=== PATIENT | male | born 1930 | race Caucasian/White ===

== ENCOUNTER 2017-03-09 00:24 | Inpatient (IN) | payer OTHER ==
[~2017-03-09] VITALS: Ht 182.9 cm; Wt 85.7 kg
--- NOTE | 2017-03-09 01:46 | ED ORDER SUMMARY ---
..... Patient: WILFREDO RAMIREZ OrderSheet [facility] VisitID: [id number] [place] [address] 86y, M Registration Date/Time: 03/09/2017 ORDER SHEET Weight: 85.7 kg (measured) Allergies: Iodine, Shellfish-derived Products GENERAL ORDERS: Chest 1V Urgent (00:03/09/2017 Colleen SYED) (Ack 0:35 LMuller) (5:54 JRomanelli R.N.) Envelope Press Operator (Continuous) (:03/09/2017 Colleen SYED) (Ack 0:35 LMuller) (0:53 DDavis R.N.) Cardiac Panel Stat (03/09/2017 Colleen SYED) (Ack 0:35 LMuller) (0:53 DDavis R.N.) PT with INR Urgent (:03/09/2017 Colleen SYED) (Ack 0:35 LMuller) (0:53 DDavis R.N.) UA-Culture if indicated Urgent (:03/09/2017 Colleen SYED) (Ack 0:35 LMuller) (Cancelled: Unable to Collect5:55 JRomanelli R.N.) Type & Screen Urgent (:03/09/2017 Colleen SYED) (Ack 0:35 LMuller) (0:53 DDavis R.N.) Oxygen (2 L/min) (NC) (:03/09/2017 Colleen SYED) (Ack 0:35 LMuller) (0:53 DDavis R.N.) Pulse oximeter (:03/09/2017 Colleen SYED) (Ack 0:35 LMuller) (0:53 DDavis R.N.) EKG - ER Stat (:03/09/2017 Colleen SYED) (Ack 0:35 LMuller) (0:36 LMuller) CT Abd/Pel w Cont (No) (N/A) Urgent (00:03/09/2017 Colleen SYED) (Ack 0:45 LMuller) (Cancelled: Verbal per Physician1:11 LMuller) Type & Cross (triple a) (triple a ) Urgent (01:02 03/09/2017 LMuller verbal order read back to Colleen SYED) (Ack 1:06 LMuller) (1:59 JRomanelli R.N.) CT Abd/Pel wo Cont Urgent (01:06 03/09/2017 LMuller verbal order read back to Colleen SYED) (1:10 LMuller) MEDICATION ORDERS: Phenergan IV 12.5 mg (HIGH ALERT MEDICATION, NOW) (01:57 03/09/2017 Catalino R.N. verbal order read back to Colleen SYED) (1:58 JRomanelli R.N.) IV FLUIDS: IV NS : initial bolus 1000 mL (1000 mL/hr), then 1000 mL/hr (NOW) (00:34 03/09/2017 Colleen SYED) (0:54 DDavis R.N.) Zofran IV 8 mg (NOW) (00:46 03/09/2017 Colleen SYED) (0:54 DDavis R.N.) Morphine IV 2 mg (HIGH ALERT MEDICATION) (01:53 03/09/2017 Catalino R.N. verbal order read back to Colleen SYED) (1:56 JRomanelli R.N.) Morphine IV 2 mg (HIGH ALERT MEDICATION, NOW) (02:04 03/09/2017 Catalino R.N. verbal order read back to Colleen SYED) (2:06 JRomanelli R.N.) Morphine IV 2 mg (HIGH ALERT MEDICATION, NOW) (05:56 03/09/2017 Catalino R.N. verbal order read back to Colleen SYED) (6:03 JRomanelli R.N.) ORDER SHEET NOTES: [Electronically signed by Trung Witt R.N. (06:23 03/09/2017)] [Electronically signed by Maggie Horan MD (00:31 03/19/2017)] [Electronically locked/signed by Trung Witt R.N. (06:23 03/09/2017)]
--- NOTE | 2017-03-09 01:46 | ED CLINICAL REPORT ---
Clinical Report - Physicians/Mid Levels [facility] [address] [place] [place] [address] 03/09/2017 0:26 Patient: WILFREDO RAMIREZ Time Seen: 0024. Arrived- By ambulance. Historian- patient and EMS personnel. HISTORY OF PRESENT ILLNESS Chief Complaint: ABDOMINAL PAIN. This started just prior to arrival. It is described as generalized in location. At its maximum, severity described as severe. When seen in the E.D., severity described as severe. Modifying factors. Not worsened by anything. Not relieved by anything. The patient has had nausea. No loss of appetite, vomiting or diarrhea. Similar symptoms previously: None. Recent medical care: Not recently seen/assessed. REVIEW OF SYSTEMS No constipation, black stools, hematemesis, difficulty with urination or pain with urination. No urinary frequency, bloody stools, fever, headache or sore throat. No blurred vision, chest pain, difficulty breathing, cough or joint pain. No skin rash, chills or back pain. All systems otherwise negative, except as recorded above. PAST HISTORY Problems: Unable to obtain. Additional Surgeries: Unable to obtain. Medications: Unable to Obtain. Allergies: Iodine. Shellfish-derived Products.(hives, itching). SOCIAL HISTORY Never smoker. No alcohol use or drug use. FAMILY HISTORY Aortic aneurysm in first-degree relative (father and sibling). ADDITIONAL NOTES The nursing notes have been reviewed. PHYSICAL EXAM Vital Signs: 03/09/2017 00:38 BP: 68/52. HR: 74. RR: 32. O2 saturation: 88%. Temp: 97.3 F. Scott-Pereyra pain scale: 6/10. Have been reviewed. Appearance: Alert. Oriented X3. Patient in moderate distress. Distress appears due to pain. Eyes: Pupils equal, round and reactive to light. Eyes normal inspection. ENT: Nose normal. Neck: Normal inspection. CVS: Normal heart rate and rhythm. Heart sounds normal. Pulses normal. Respiratory: No respiratory distress. Breath sounds normal. Abdomen: Soft. Moderate tenderness diffusely. No guarding or rebound tenderness. Back: Normal inspection. No CVA tenderness. Skin: Skin warm and dry. Slight pallor. No rash. Normal skin turgor. Extremities: No lower extremity edema. Neuro: No motor deficit. No sensory deficit. (Patient is alert and answers questions appropriately.). LABS, X-RAYS, AND EKG EKG: EKG time: (37). Normal sinus rhythm. Rate: 78. Normal MARTIN. Left axis deviation. Non-specific ST segment / T wave abnormalities. Prolonged QT. Prior EKG unavailable. The study has been interpreted contemporaneously by me. The study has been independently viewed by me. The EKG appears to be a good tracing. I agree with and confirm the computer reading of the EKG. Rhythm Strip #1: Time: (25). Rate= 97. Normal sinus rhythm. Regular rhythm. Narrow QRS complexes. No ectopy. Conduction normal. Normal ST segments and T waves. The study was interpreted by me. Chest X-ray: No acute disease. Normal lung markings present. Normal heart size. Mediastinum normal. Great vessels normal. Soft tissues normal. No infiltrate. No fracture. No bony lesion present. Views: AP (portable). Technique: good. The X-rays were independently viewed by me and interpreted contemporaneously by me. Prior films were not available for comparison. Abdominal CT: Large abdominal aortic aneurysm present. Severe retroperitoneal bleeding present. A large amount of free fluid is present in the abdomen. Gallstone present. Normal liver, spleen, pancreas and adrenals. Bladder normal. Appendix normal. No mass. No bony lesion. No diverticulitis. Cystic kidneys. Study type: abdomen and pelvis. Abdominal CT performed without contrast. The study was independently viewed by me, interpreted by the radiologist and contemporaneously by me and discussed with the radiologist. Prior studies were not available for comparison. Laboratory Tests: CBC w Diff: (OTIS: 03/09/2017 00:30) ( MsgRcvd 03/09/2017 00:41) Final results Test Result Flag Units (Reference) WHITE BLOOD COUNT 18.2 H K/uL (4.5-11.5) RED BLOOD COUNT 2.84 L M/uL (4.50-5.90) HEMOGLOBIN 9.0 L gm/dL (13.5-17.5) HEMATOCRIT 28.2 L % (41.0-53.0) MEAN CELL VOLUME 100 fL (80-100) MEAN CORPUSCULAR HGB 32 pg (26-34) MEAN CORPUSCULAR HGB CONC 32 g/dL (31-37) RED CELL DISTRIBUTION WIDTH 23.6 H % (11.6-14.8) PLATELET COUNT 229 K/uL (150-400) NEUTROPHIL % 54.7 % (50-75) LYMPH % 29.4 % (25-40) MONO % 9.9 % (3-14) EOSINOPHIL % 5.4 H % (0-4) BASOPHIL % 0.6 % (0-2) PT with INR: (OTIS: 03/09/2017 00:30) ( [facility] 03/09/2017 00:52) Final results Test Result Flag Units (Reference) INR 1.0 (0.8-1.2) Low Intensity Therapy: INR 1.5-2.0 PT range 18.5-23.1Mod.Intensity Therapy: INR 2.0-3.0 PT range 23.1-31.5High Intensity Therapy: INR 2.5-3.5 PT range 27.4-35.5High Intensity Therapy 2: INR 3.0-4.0 PT range 31.5-39.3 CHEM 13 PANEL: (OTIS: 03/09/2017 00:30) ( MsgRcvd 03/09/2017 01:00) Final results Test Result Flag Units (Reference) GLUCOSE 287 H mg/dL (70-110) BUN 22 H mg/dL (7-18) CREATININE 1.3 mg/dL (0.6-1.3) Estimated GFR 55.76 mL/min Estimated GFR- >60 mL/min Note: Persistent reduction over 3 months in eGFR<60 mL/min/1.73 m2 defines CKD. Patients with eGFR values>=60 mL/min/1.73 m2 may also have CKD if evidence ofpersistent proteinuria. Additional information may be foundat [email or web address].org. SODIUM 141 mmol/L (136-145) POTASSIUM 3.7 mmol/L (3.5-5.1) CHLORIDE 108 H mmol/L (98-107) CARBON DIOXIDE 22 mmol/L (21-32) CALCIUM 8.0 L mg/dL (8.5-10.1) TOTAL PROTEIN 5.8 L g/dL (6.4-8.2) ALBUMIN 2.6 L g/dL (3.3-5.0) BILIRUBIN, TOTAL 0.5 mg/dL (0.0-1.0) ALKALINE PHOSPHATASE 61 U/L (46-116) AST (SGOT) 16 U/L (15-37) ALT (SGPT) 18 U/L (12-78) MAGNESIUM 2.0 mg/dL (1.8-2.4) CPK 29 U/L (24-260) TROPONIN I 0.05 ng/mL (0.00-1.5) TROPONIN REFERENCE RANGE:<0.1 NEGATIVE0.1-1.5 INDETERMINANT>1.5 POSITIVE Type & Cross: (OTIS: 03/09/2017 00:30) ( MsgRcvd 03/09/2017 01:47) IP Test Result Flag Units (Reference) LEUKOREDUCED PACKED CELLS [id number] ABN PC XM COMPATIBLE [id number] ON PC XM COMPATIBLE [id number] ON PC XM COMPATIBLE [id number] ON PC XM COMPATIBLE [id number] ON PC XM COMPATIBLE [id number] ABN PC XM COMPATIBLE PATIENT BLOOD TYPE AB Negative Above is a corrected result. Previously reported on ( MsgRcvd 03/09/2017 01:17) as: PATIENT BLOOD TYPE AB Negative ANTIBODY SCREEN NEGATIVE Above is a corrected result. Previously reported on ( MsgRcvd 03/09/2017 01:17) as: ANTIBODY SCREEN NEGATIVE . Pulse Oximetry: 03/09/2017 00:38 O2 saturation: 88%. (FIO2 - room air). Interpretation: hypoxemia. Pulse Oximetry #2: 03/09/2017 01:50 O2 saturation: 95%. (FIO2- non-rebreather). Interpretation: normal. PROGRESS AND PROCEDURES Course of Care: This patient was evaluated by myself immediately upon arrival in the emergency department. He was an elderly gentleman with severe abdominal pain and hypotension, and I was concerned about a possible ruptured abdominal aortic aneurysm. Additionally the patient did have a family history that was significant for this and other family members. Patient arrived with an 18-gauge IV in one arm and another IV was placed in his other arm. He was immediately started on IV fluid. I did perform a fast ultrasound exam, which did not show any free fluid. The patient's systolic blood pressures improved slightly to the 90s with IV fluid, initially, and so I did send the patient to the radiology suite for an emergent CT scan of the abdomen and pelvis. This did show a 6-1/2 cm abdominal aortic aneurysm, with a large amount of retroperitoneal hemorrhage. At this point I did immediately have the vascular surgeon at [facility] paged, and had the transfer center initiate the process for airlift. I also had the blood bank send down O- blood while the patient is being crossmatched. 2 units of O- blood were immediately hung and transfusion was initiated. Patient did receive a total of 1-1/2 L of 0.9 normal saline prior to this. The patient continued to mentate well though he did complain repeatedly of abdominal pain, and occasionally inability to breathe well. I had started the process of attempting to place a right subclavian central line, and accessed the vein without difficulty by needle. However, despite multiple attempts and repositioning of the needle, and good blood return into the syringe repeatedly, the guidewire met with resistance each time an attempt was made to thread it. During this process I did speak twice with Dr. Ortiz, the on-call vascular surgeon at [facility]. He did view the CT images, and called me back, stating that the extent of the rupture and hemorrhage, combined with the patient's age and hemodynamic instability, and did portend a very poor outcome and an extremely low likelihood of surviving the surgery, which would have to be much more involved and complicated. I did speak with the patient and his daughter, [place], and advised him of the situation I did give them both the option of the patient's being transferred for surgery, which is unlikely to be successful; however, there is a very small chance that he would survive surgery. The other option was to have the patient stay here at [facility], spend time with his family, and be treated with comfort care only. The patient and daughter understand that if the pt stays here, he will not survive. The patient initially had stated that he wished to be a full code, as he needs to be home taking care of his ; however after discussing the gravity of the situation and the options the patient did opt to stay here at the hospital. I did speak with Dr. Brock who did agree to take over the patient's care said that the patient could be given a room upstairs where he may pass in comfort, surrounded by family. At this point in time I did abort attempts to place the central line. The patient was given small doses of morphine for his pain once the decision was made that he would be treated as comfort care. Family members did come in and visit the patient while in the emergency department. Patient did survive to transfer upstairs. Critical care performed (130 minutes) (CT scan interpretation). Time is exclusive of separately billable procedures. Time includes: direct patient care, patient reassessment, coordination of patient care, interpretation of data (laboratory data, pulse oximetry, chest xrays and cardiac output measurements), review of patient's medical records, medical consultation, family consultation regarding treatment decisions and documentation of patient care- see progress notes. The patient required critical care due to the acute impairment of vital organ systems (cardiovascular) and a high probability of imminent and life threatening deterioration. Numerous emergent and urgent interventions were required to prevent sudden life threatening deterioration. Discussed case with health care provider ([facility]). Discussed case with hospitalist, (Vinod). Patient and family counseled in person several times regarding the patient's critical condition, poor prognosis for survival and comfort care measures for the patient. Old medical records reviewed. Disposition: Admitted to Acute Care. Condition: critical. CLINICAL IMPRESSION Symptomatic abdominal aortic aneurysm with rupture, hypotension and shock. (Electronically signed by Maggie Horan MD 03/19/2017 0:31)
--- NOTE | 2017-03-09 01:46 | ED NURSING NOTES ---
Clinical Report - Nurses [place] [address] [place] [address] 03/09/2017 0:26 [id number] Triage time late entry - 00:42. Acuity: LEVEL 2. Chief Complaint: (abdominal pain). Alert. KATIE COMA SCORE: Katie Coma Scale: 15- eyes open spontaneously (4); best verbal response- oriented x 4 (5); best motor response- obeys commands (6). --00:45 Noe Kovacs R.N. 00:38 03/09/17. BP: 68/52 taken on the left arm, manually, while lying. HR: 74. RR: 32. O2 saturation: 88% on room air. O2 started via nasal cannula at 2 liters/minute. Temp: 97.3 F (oral). Scott-Pereyra pain scale: 6/10. Additional comments: Dr. Horan notified of vitals and is at bedside. --00:45 Noe Kovacs R.N. Weight: 85.7 kg measured. Height/Length: 72 inches Estimated. BMI: 25.6. --00:40 Noe Kovacs R.N. Medications Unable to Obtain. --00:52 Noe Kovacs R.N. Allergies Iodine. Shellfish-derived Products.(hives, itching) --00:52 Noe Kovacs R.N. History Arrived by EMS. Historian: patient (EMS). Accompanied by family. This started today. Onset. (pt strates that he awoke from sleep with "side pain"). ( arrived by ambulance, EMS states that patient). --00:45 Noe Kovacs R.N. PROBLEMS: Unable to obtain. --00:52 Noe Kovacs R.N. ADDITIONAL SURGERIES: Unable to obtain. --00:52 Noe Kovacs R.N. Interventions ID band on patient. To treatment room. --00:45 Noe Kovacs R.N. PHYSICAL ASSESSMENT To room via stretcher. ( pt states that the pain started and awoke him from sleep, he started having bilateral side pain). GENERAL / NEURO / PSYCH: Alert. Oriented X 4. Appears in pain and anxious. RESPIRATORY: Decreased breath sounds diffusely over both lungs. CVS: Normal sinus rhythm noted. No abnormal heart sounds. ( difficult to auscultate cardiac sounds). Capillary refill less than 2 seconds. SKIN: Skin intact. Skin is warm and dry. --00:51 Noe Kovacs R.N. NURSING PROGRESS NOTES 00:38 03/09/17. BP: 68/52 taken on the left arm, manually, while lying. HR: 74. RR: 32. O2 saturation: 88% on room air. O2 started via nasal cannula at 2 liters/minute. Temp: 97.3 F (oral). Scott-Pereyra pain scale: 6/10. Additional comments: Dr. Horan notified of vitals and is at bedside. --00:42 Noe Kovacs R.N. ( Patient taken to CT with Trung Chaudhary RN. Trung Chaudhary RN received report from EMS). --00:53 Noe Kovacs R.N. 00:39 03/09/2017 Site #1 started prior to arrival by EMS via IV in the left wrist with an 18g angiocath, with good blood return. Saline lock flushed with 10 mL saline. --00:54 Noe Kovacs R.N. 00:39 03/09/2017 Started bag #1 1000 mL IV Fluids IV NS (Saline); at 1000 mL/hr over 1 hour(s) via site #1. Allergies verified and confirmed 5 rights. IV patency established. IV site checked: no pain, redness, or swelling. IV flushed thoroughly pre- and post-medication administration. Completed per protocol. --00:54 Noe Kovacs R.N. 00:40 03/09/2017 Site #2 started via IV in the right antecubital space with an 20g angiocath, with aseptic technique and good blood return; one attempt. Blood drawn: rainbow set. Labeled in the presence of the patient and sent to the lab. Saline lock flushed with 10 mL saline (Started by Loida Lopes RN). --00:55 Noe Kovacs R.N. 00:40 03/09/2017 Started bag #1 1000 mL IV Fluids IV NS (Saline); at 1000 mL/hr over 1 hour(s) via site #2. Allergies verified and confirmed 5 rights. IV patency established. IV site checked: no pain, redness, or swelling. IV flushed thoroughly pre- and post-medication administration. Completed per protocol. --00:55 Noe Kovacs R.N. 00:54 03/09/2017 Zofran (Ondansetron HCl) IVP 8 mg given over 1 minute(s) via site #1. Allergies verified and confirmed 5 rights. IV patency established. IV site checked: no pain, redness, or swelling. IV flushed thoroughly pre- and post-medication administration. IVP given by RN (Given by ANTHONY Bagley). --00:54 Noe Kovacs R.N. 00:45 03/09/17. BP: 74/54. --00:56 Noe Kovacs R.N. ( Patient returned from CT). --00:59 Noe Kovacs R.N. patient monitor, pulse oximeter and NIBP monitor placed on patient. --00:59 Noe Kovacs R.N. ( Dr. Horan is attempting to place a central line, she began previous to this time.). --01:21 Noe Kovacs R.N. ( Patient currently has 2 units of RBC infusing). --01:40 Noe Kovacs R.N. ( The Daughter of the patient is at bedside, patient states that he wants to stay in [place] and not have surgery. Dr Horan has discussed the risks of staying). --01:41 Noe Kovacs R.N. 01:35 03/09/2017 Site #3 started via IV in the left antecubital space with an 18g angiocath; one attempt. Saline lock flushed with 10 mL saline. --01:57 Noe Kovacs R.N. 01:46 03/09/2017 Morphine IVP 2 mg given over 2 minute(s) via site #2. Allergies verified, confirmed 5 rights and sedative warning given to the patient's family. IV patency established. IV site checked: no pain, redness, or swelling. IV flushed thoroughly pre- and post-medication administration. IVP given by RN. --01:56 Trung Witt R.N. 01:48 03/09/2017 PHENERGAN (Promethazine HCl) IVP 12.5 mg given over 2 minute(s) via site #3. Allergies verified and confirmed 5 rights. IV patency established. IV site checked: no pain, redness, or swelling. IV flushed thoroughly pre- and post-medication administration. IVP given by RN. --01:58 Trung Witt R.N. 02:06 03/09/2017 Morphine IVP 2 mg given over 2 minute(s) via site #1. Allergies verified, confirmed 5 rights and sedative warning given to the patient's family. IV patency established. IV site checked: no pain, redness, or swelling. IV flushed thoroughly pre- and post-medication administration. IVP given by RN. --02:06 Trung Witt R.N. 01:50 03/09/17. BP: 55/30. HR: 116. RR: 29. O2 saturation: 95% on non-rebreather. --02:07 Trung Witt R.N. 00:45: Report given to Trung Chaudhary RN. --02:16 Noe Kovacs R.N. 01:30. ( All of family here with pt). --02:10 Trung Witt R.N. EKG time: (0038). EKG was ordered, performed by a tech and shown to the ED physician. --02:46 Leonid [facility] Hand Screen Printer 01:30 03/09/2017 IV Fluids IV NS Bag Change: bag #1 infused. Total amount infused: 1000. STARTED bag #4 (1000 mL) at 200 mL/hr via IV pump. IV patency established. IV site checked: no pain, redness, or swelling. IV flushed thoroughly. (Gage garcia blood). --06:09 Trung Witt R.N. 01:41 03/09/2017 IV Fluids IV NS Bag Change: bag #2 infused. Total amount infused: 1000. STARTED bag #4 (1000 mL) at 500 mL/hr. Confirmed 5 rights. IV patency established. IV site checked: no pain, redness, or swelling. IV flushed thoroughly. --06:11 Trung Witt R.N. 02:10 03/09/2017 Morphine IVP 2 mg given over 2 minute(s) via site #3. Allergies verified, confirmed 5 rights and sedative warning given. IV patency established. IV site checked: no pain, redness, or swelling. IV flushed thoroughly pre- and post-medication administration. IVP given by RN. --06:04 Trung Witt R.N. <<STRICKEN ENTRY-- 02:30 03/09/2017 Morphine IVP 2 mg given over 2 minute(s) via site #3. Allergies verified, confirmed 5 rights and sedative warning given. IV patency established. IV site checked: no pain, redness, or swelling. IV flushed thoroughly pre- and post-medication administration. IVP given by RN. --06:03 Trung Witt R.N. --END STRIKE>> Correction. --06:04 Trung Witt R.N. 02:30 03/09/2017 IV Fluids IV NS Continued: upon admission at the rate of 200 mL/hr. 750 mL remaining bag #3. IV patency established. IV site checked: no pain, redness, or swelling. IV flushed thoroughly. --06:12 Trung Witt R.N. 02:30 03/09/2017 IV Fluids IV NS Discontinued: bag #4 infused upon admission. Total amount infused: 1000 mL. IV patency established. IV site checked: no pain, redness, or swelling. IV flushed thoroughly. --06:14 Trung Witt R.N. 02:00. ( Both bags of PRBC's completed.). --06:15 Trung Witt R.N. DISPOSITION / DISCHARGE Departure time: 0230. --05:58 Trung Witt R.N. 02:00. ( patient monitor suspended after pt and family agreed with the [facility] Surgeon, who was to perform the surgery, that the pt stood a remote chance of surviving the procedure. Pt was to be admitted to this Hospital on comfort/supportive care.). --06:22 Trung Witt R.N. 02:30. Admitted to Acute Care. Transported via stretcher by nurse with IV and O2. Report was given to a nurse via a phone call. Report included patient's care, treatment, medications, reviewed medication reconcilliation, and condition (including any recent changes or anticipated changes). All questions were answered. Report was acknowledged and care was transferred. Bed obtained. Patient's personal items; items were placed in belongings bag and transported with the patient. --06:00 Trung Witt R.N. Locked/Released at 03/09/2017 6:23 by Trung Witt R.N.
--- NOTE | 2017-03-09 01:46 | ED ORDER SUMMARY ---
..... 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) (:03/09/2017 Colleen SYED) (Ack 0:35 LMuller) (0:53 DDavis R.N.) Cardiac Panel Stat (03/09/2017 Colleen SYED) (Ack 0:35 LMuller) (0:53 DDavis R.N.) PT with INR Urgent (:03/09/2017 Colleen SYED) (Ack 0:35 LMuller) (0:53 DDavis R.N.) UA-Culture if indicated Urgent (:03/09/2017 Colleen SYED) (Ack 0:35 LMuller) (Cancelled: Unable to Collect5:55 JRomanelli R.N.) Type & Screen Urgent (:03/09/2017 Colleen SYED) (Ack 0:35 LMuller) (0:53 DDavis R.N.) Oxygen (2 L/min) (NC) (:03/09/2017 Colleen SYED) (Ack 0:35 LMuller) (0:53 DDavis R.N.) Pulse oximeter (:03/09/2017 Colleen SYED) (Ack 0:35 LMuller) (0:53 DDavis R.N.) EKG - ER Stat (:03/09/2017 Colleen SYED) (Ack 0:35 LMuller) (0:36 LMuller) CT Abd/Pel w Cont (No) (N/A) Urgent (00:03/09/2017 Colleen SYED) (Ack 0:45 LMuller) (Cancelled: Verbal per Physician1:11 LMuller) Type & Cross (triple a) (triple a ) Urgent (01:02 03/09/2017 LMuller verbal order read back to Colleen SYED) (Ack 1:06 LMuller) (1:59 JRomanelli R.N.) CT Abd/Pel wo Cont Urgent (01:06 03/09/2017 LMuller verbal order read back to Colleen SYED) (1:10 LMuller) MEDICATION ORDERS: Phenergan IV 12.5 mg (HIGH ALERT MEDICATION, NOW) (01:57 03/09/2017 Catalino R.N. verbal order read back to Colleen SYED) (1:58 JRomanelli R.N.) IV FLUIDS: IV NS : initial bolus 1000 mL (1000 mL/hr), then 1000 mL/hr (NOW) (00:34 03/09/2017 Colleen SYED) (0:54 DDavis R.N.) Zofran IV 8 mg (NOW) (00:46 03/09/2017 Colleen SYED) (0:54 DDavis R.N.) Morphine IV 2 mg (HIGH ALERT MEDICATION) (01:53 03/09/2017 Catalino R.N. verbal order read back to Colleen SYED) (1:56 JRomanelli R.N.) Morphine IV 2 mg (HIGH ALERT MEDICATION, NOW) (02:04 03/09/2017 Catalino R.N. verbal order read back to Colleen SYED) (2:06 JRomanelli R.N.) Morphine IV 2 mg (HIGH ALERT MEDICATION, NOW) (05:56 03/09/2017 Catalino R.N. verbal order read back to Colleen SYED) (6:03 JRomanelli R.N.) ORDER SHEET NOTES: [Electronically signed by Trung Witt R.N. (06:23 03/09/2017)] [Electronically signed by Maggie Horan MD (00:31 03/19/2017)] [Electronically locked/signed by Trung Witt R.N. (06:23 03/09/2017)]
--- NOTE | 2017-03-09 01:46 | ED CLINICAL REPORT ---
Clinical Report - Physicians/Mid Levels [facility] [address] [place] [place] [address] 03/09/2017 0:26 Patient: WILFREDO RAMIREZ Time Seen: 0024. Arrived- By ambulance. Historian- patient and EMS personnel. HISTORY OF PRESENT ILLNESS Chief Complaint: ABDOMINAL PAIN. This started just prior to arrival. It is described as generalized in location. At its maximum, severity described as severe. When seen in the E.D., severity described as severe. Modifying factors. Not worsened by anything. Not relieved by anything. The patient has had nausea. No loss of appetite, vomiting or diarrhea. Similar symptoms previously: None. Recent medical care: Not recently seen/assessed. REVIEW OF SYSTEMS No constipation, black stools, hematemesis, difficulty with urination or pain with urination. No urinary frequency, bloody stools, fever, headache or sore throat. No blurred vision, chest pain, difficulty breathing, cough or joint pain. No skin rash, chills or back pain. All systems otherwise negative, except as recorded above. PAST HISTORY Problems: Unable to obtain. Additional Surgeries: Unable to obtain. Medications: Unable to Obtain. Allergies: Iodine. Shellfish-derived Products.(hives, itching). SOCIAL HISTORY Never smoker. No alcohol use or drug use. FAMILY HISTORY Aortic aneurysm in first-degree relative (father and sibling). ADDITIONAL NOTES The nursing notes have been reviewed. PHYSICAL EXAM Vital Signs: 03/09/2017 00:38 BP: 68/52. HR: 74. RR: 32. O2 saturation: 88%. Temp: 97.3 F. Scott-Pereyra pain scale: 6/10. Have been reviewed. Appearance: Alert. Oriented X3. Patient in moderate distress. Distress appears due to pain. Eyes: Pupils equal, round and reactive to light. Eyes normal inspection. ENT: Nose normal. Neck: Normal inspection. CVS: Normal heart rate and rhythm. Heart sounds normal. Pulses normal. Respiratory: No respiratory distress. Breath sounds normal. Abdomen: Soft. Moderate tenderness diffusely. No guarding or rebound tenderness. Back: Normal inspection. No CVA tenderness. Skin: Skin warm and dry. Slight pallor. No rash. Normal skin turgor. Extremities: No lower extremity edema. Neuro: No motor deficit. No sensory deficit. (Patient is alert and answers questions appropriately.). LABS, X-RAYS, AND EKG EKG: EKG time: (37). Normal sinus rhythm. Rate: 78. Normal MARTIN. Left axis deviation. Non-specific ST segment / T wave abnormalities. Prolonged QT. Prior EKG unavailable. The study has been interpreted contemporaneously by me. The study has been independently viewed by me. The EKG appears to be a good tracing. I agree with and confirm the computer reading of the EKG. Rhythm Strip #1: Time: (25). Rate= 97. Normal sinus rhythm. Regular rhythm. Narrow QRS complexes. No ectopy. Conduction normal. Normal ST segments and T waves. The study was interpreted by me. Chest X-ray: No acute disease. Normal lung markings present. Normal heart size. Mediastinum normal. Great vessels normal. Soft tissues normal. No infiltrate. No fracture. No bony lesion present. Views: AP (portable). Technique: good. The X-rays were independently viewed by me and interpreted contemporaneously by me. Prior films were not available for comparison. Abdominal CT: Large abdominal aortic aneurysm present. Severe retroperitoneal bleeding present. A large amount of free fluid is present in the abdomen. Gallstone present. Normal liver, spleen, pancreas and adrenals. Bladder normal. Appendix normal. No mass. No bony lesion. No diverticulitis. Cystic kidneys. Study type: abdomen and pelvis. Abdominal CT performed without contrast. The study was independently viewed by me, interpreted by the radiologist and contemporaneously by me and discussed with the radiologist. Prior studies were not available for comparison. Laboratory Tests: CBC w Diff: (OTIS: 03/09/2017 00:30) ( MsgRcvd 03/09/2017 00:41) Final results Test Result Flag Units (Reference) WHITE BLOOD COUNT 18.2 H K/uL (4.5-11.5) RED BLOOD COUNT 2.84 L M/uL (4.50-5.90) HEMOGLOBIN 9.0 L gm/dL (13.5-17.5) HEMATOCRIT 28.2 L % (41.0-53.0) MEAN CELL VOLUME 100 fL (80-100) MEAN CORPUSCULAR HGB 32 pg (26-34) MEAN CORPUSCULAR HGB CONC 32 g/dL (31-37) RED CELL DISTRIBUTION WIDTH 23.6 H % (11.6-14.8) PLATELET COUNT 229 K/uL (150-400) NEUTROPHIL % 54.7 % (50-75) LYMPH % 29.4 % (25-40) MONO % 9.9 % (3-14) EOSINOPHIL % 5.4 H % (0-4) BASOPHIL % 0.6 % (0-2) PT with INR: (OTIS: 03/09/2017 00:30) ( [facility] Final results Test Result Flag Units (Reference) INR 1.0 (0.8-1.2) Low Intensity Therapy: INR 1.5-2.0 PT range 18.5-23.1Mod.Intensity Therapy: INR 2.0-3.0 PT range 23.1-31.5High Intensity Therapy: INR 2.5-3.5 PT range 27.4-35.5High Intensity Therapy 2: INR 3.0-4.0 PT range 31.5-39.3 CHEM 13 PANEL: (OTIS: 03/09/2017 00:30) ( MsgRcvd 03/09/2017 01:00) Final results Test Result Flag Units (Reference) GLUCOSE 287 H mg/dL (70-110) BUN 22 H mg/dL (7-18) CREATININE 1.3 mg/dL (0.6-1.3) Estimated GFR 55.76 mL/min Estimated GFR- >60 mL/min Note: Persistent reduction over 3 months in eGFR<60 mL/min/1.73 m2 defines CKD. Patients with eGFR values>=60 mL/min/1.73 m2 may also have CKD if evidence ofpersistent proteinuria. Additional information may be foundat [email or web address].org. SODIUM 141 mmol/L (136-145) POTASSIUM 3.7 mmol/L (3.5-5.1) CHLORIDE 108 H mmol/L (98-107) CARBON DIOXIDE 22 mmol/L (21-32) CALCIUM 8.0 L mg/dL (8.5-10.1) TOTAL PROTEIN 5.8 L g/dL (6.4-8.2) ALBUMIN 2.6 L g/dL (3.3-5.0) BILIRUBIN, TOTAL 0.5 mg/dL (0.0-1.0) ALKALINE PHOSPHATASE 61 U/L (46-116) AST (SGOT) 16 U/L (15-37) ALT (SGPT) 18 U/L (12-78) MAGNESIUM 2.0 mg/dL (1.8-2.4) CPK 29 U/L (24-260) TROPONIN I 0.05 ng/mL (0.00-1.5) TROPONIN REFERENCE RANGE:<0.1 NEGATIVE0.1-1.5 INDETERMINANT>1.5 POSITIVE Type & Cross: (OTIS: 03/09/2017 00:30) ( MsgRcvd 03/09/2017 01:47) IP Test Result Flag Units (Reference) LEUKOREDUCED PACKED CELLS [id number] ABN PC XM COMPATIBLE [id number] ON PC XM COMPATIBLE [id number] ON PC XM COMPATIBLE [id number] ON PC XM COMPATIBLE [id number] ON PC XM COMPATIBLE [id number] ABN PC XM COMPATIBLE PATIENT BLOOD TYPE AB Negative Above is a corrected result. Previously reported on ( MsgRcvd 03/09/2017 01:17) as: PATIENT BLOOD TYPE AB Negative ANTIBODY SCREEN NEGATIVE Above is a corrected result. Previously reported on ( MsgRcvd 03/09/2017 01:17) as: ANTIBODY SCREEN NEGATIVE . Pulse Oximetry: 03/09/2017 00:38 O2 saturation: 88%. (FIO2 - room air). Interpretation: hypoxemia. Pulse Oximetry #2: 03/09/2017 01:50 O2 saturation: 95%. (FIO2- non-rebreather). Interpretation: normal. PROGRESS AND PROCEDURES Course of Care: This patient was evaluated by myself immediately upon arrival in the emergency department. He was an elderly gentleman with severe abdominal pain and hypotension, and I was concerned about a possible ruptured abdominal aortic aneurysm. Additionally the patient did have a family history that was significant for this and other family members. Patient arrived with an 18-gauge IV in one arm and another IV was placed in his other arm. He was immediately started on IV fluid. I did perform a fast ultrasound exam, which did not show any free fluid. The patient's systolic blood pressures improved slightly to the 90s with IV fluid, initially, and so I did send the patient to the radiology suite for an emergent CT scan of the abdomen and pelvis. This did show a 6-1/2 cm abdominal aortic aneurysm, with a large amount of retroperitoneal hemorrhage. At this point I did immediately have the vascular surgeon at [facility] paged, and had the transfer center initiate the process for airlift. I also had the blood bank send down O- blood while the patient is being crossmatched. 2 units of O- blood were immediately hung and transfusion was initiated. Patient did receive a total of 1-1/2 L of 0.9 normal saline prior to this. The patient continued to mentate well though he did complain repeatedly of abdominal pain, and occasionally inability to breathe well. I had started the process of attempting to place a right subclavian central line, and accessed the vein without difficulty by needle. However, despite multiple attempts and repositioning of the needle, and good blood return into the syringe repeatedly, the guidewire met with resistance each time an attempt was made to thread it. During this process I did speak twice with Dr. Ortiz, the on-call vascular surgeon at [facility]. He did view the CT images, and called me back, stating that the extent of the rupture and hemorrhage, combined with the patient's age and hemodynamic instability, and did portend a very poor outcome and an extremely low likelihood of surviving the surgery, which would have to be much more involved and complicated. I did speak with the patient and his daughter, [place], and advised him of the situation I did give them both the option of the patient's being transferred for surgery, which is unlikely to be successful; however, there is a very small chance that he would survive surgery. The other option was to have the patient stay here at [facility], spend time with his family, and be treated with comfort care only. The patient and daughter understand that if the pt stays here, he will not survive. The patient initially had stated that he wished to be a full code, as he needs to be home taking care of his ; however after discussing the gravity of the situation and the options the patient did opt to stay here at the hospital. I did speak with Dr. Brock who did agree to take over the patient's care said that the patient could be given a room upstairs where he may pass in comfort, surrounded by family. At this point in time I did abort attempts to place the central line. The patient was given small doses of morphine for his pain once the decision was made that he would be treated as comfort care. Family members did come in and visit the patient while in the emergency department. Patient did survive to transfer upstairs. Critical care performed (130 minutes) (CT scan interpretation). Time is exclusive of separately billable procedures. Time includes: direct patient care, patient reassessment, coordination of patient care, interpretation of data (laboratory data, pulse oximetry, chest xrays and cardiac output measurements), review of patient's medical records, medical consultation, family consultation regarding treatment decisions and documentation of patient care- see progress notes. The patient required critical care due to the acute impairment of vital organ systems (cardiovascular) and a high probability of imminent and life threatening deterioration. Numerous emergent and urgent interventions were required to prevent sudden life threatening deterioration. Discussed case with health care provider ([facility]). Discussed case with hospitalist, (Vinod). Patient and family counseled in person several times regarding the patient's critical condition, poor prognosis for survival and comfort care measures for the patient. Old medical records reviewed. Disposition: Admitted to Acute Care. Condition: critical. CLINICAL IMPRESSION Symptomatic abdominal aortic aneurysm with rupture, hypotension and shock. (Electronically signed by Maggie Horan MD 03/19/2017 0:31)
--- NOTE | 2017-03-09 03:42 | History & Physical Report ---
Information Source Information Source: Spouse/Partner, Family Reliability: Poor History Chief Complaint chest pain History of Present Illness Patient is an 86 year old male with a known history of abdominal aneursym that is presenting with sudden on set of chest pain. Patient had been in his normal state of health when he experienced a sudden onset tearing pain in his chest that radiated to his back. Patient has a family history of ruptured aneurysms and knew that this was most likely the scenario. Patient was brought to the hospital which confirmed the presence of a ruptured aneurysm. Patient was started on aggressive hydration and blood transfusions, and efforts to transfer the patient were made. The receiving facility reviewed the films and confirmed that the patient would most likely not survive the surgery. These new facts were discussed with the family and they made the decision to make the patient comfort care. History is limited due to the grieving of the family however they understand what comfort care entails and wish to proceed. Patient History 1. Ruptured abdominal aortic aneurysm (AAA) 2. Need for comfort care Social History Reviewed. Patient lives at home with his . He has a remote smoking history, does not drink and does not use illicit substances. Family History Family history was reviewed; no changes noted. Advance Directive POLST Medications and Allergies Medications Current Medications Sig/Emily Start time Last Medication Dose Route Stop Time Status Admin Morphine Sulfate 2 MG ONCE 03/09 0345 AC IV Ondansetron HCl 4 MG Q6H PRN 03/09 0330 AC IV Allergies Coded Allergies: Iodides (03/09/17) Iodinated Contrast Media (03/09/17) Uncoded Allergies: Food Allergies: Latex Allergy: N Med Allergies: NKA Review of Systems Constitutional Other (too sedated to assess ). Physical Exam General Appearance Moderate distress HEENT Atraumatic, Moist mucous membranes Lungs bilateral crackles in all lung jerez Cardiovascular - bradycardic - irregularly irregular rhythm Abdomen Soft, No tenderness Extremities No edema, No tenderness Skin No Breakdown Neurological patient too unresponsive to test Psych/Mental Status - sedated LAB Results Laboratory Tests 03/09 0030 Chemistry Plasma Sodium (136 - 145 mmol/L) 141 Plasma Potassium (3.5 - 5.1 mmol/L) 3.7 Plasma Chloride (98 - 107 mmol/L) 108 CO2 (Enzymatic) (21 - 32 mmol/L) 22 BUN (7 - 18 mg/dL) 22 Creatinine (0.6 - 1.3 mg/dL) 1.3 Est GFR ( Amer) (mL/min) >60 Est GFR (Non-Af Amer) (mL/min) 55.76 Glucose (70 - 110 mg/dL) 287 Plasma Calcium (8.5 - 10.1 mg/dL) 8.0 Plasma Magnesium (1.8 - 2.4 mg/dL) 2.0 Total Bilirubin (0.0 - 1.0 mg/dL) 0.5 AST (15 - 37 U/L) 16 ALT (12 - 78 U/L) 18 Alkaline Phosphatase (46 - 116 U/L) 61 Creatine Kinase (24 - 260 U/L) 29 Troponin (0.00 - 1.5 ng/mL) 0.05 Total Protein (6.4 - 8.2 g/dL) 5.8 Albumin (3.3 - 5.0 g/dL) 2.6 Coagulation INR (0.8 - 1.2) 1.0 Hematology WBC (4.5 - 11.5 K/uL) 18.2 RBC (4.50 - 5.90 M/uL) 2.84 Hgb (13.5 - 17.5 gm/dL) 9.0 Hct (41.0 - 53.0 %) 28.2 MCV (80 - 100 fL) 100 MCH (26 - 34 pg) 32 RDW (11.6 - 14.8 %) 23.6 Neut % (Auto) (50 - 75 %) 54.7 Lymph % (Auto) (25 - 40 %) 29.4 [place] % (Auto) (3 - 14 %) 9.9 Eos % (Auto) (0 - 4 %) 5.4 Baso % (Auto) (0 - 2 %) 0.6 Plt Count, EDTA (150 - 400 K/uL) 229 PUBS MCHC (31 - 37 g/dL) 32 Assessment and Plan Problem List 1. Ruptured abdominal aortic aneurysm (AAA) Plan - will iniate comfort care protocol - will monitor for any pain and address it - anti-emetics, pain meds and anxiolytics are all on board - will address each need as it arises 2. Need for comfort care Plan - comfort care protocol initiated
--- NOTE | 2017-03-09 06:01 | Progress Note ---
Subjective General Note Date: March 09, 2017 Admission Date: March 09, 2017 Hospital Day: 1 PCP: Marin Zamora M.D. Status: Inpatient, acute care Advanced Directive: NO CODE Room: 206 Admission History: The patient is a 86-year-old white male with a significant past medical history of hypertension who presented to [facility] emergency department on the day of admission secondary to complaints of abdominal pain. [facility] ER evaluation was consistent with ruptured abdominal aortic aneurysm. Secondary to the above, the patient was admitted by Raji Brock M.D. for comfort measures. For other history present illness, past medical history, family history, social history, review of systems, and admission physical examination please see the patient's history and physical examination and ER visit note in the patient's medical record. Subjective: The patient is unresponsive at this time. Hypotensive. Patient requests: Family requests comfort measures only. DNR/DNI. Medications and Allergies Medications Current Medications Sig/Emily Start time Last Medication Dose Route Stop Time Status Admin Sodium Chloride 1,000 ML ASDIRECTED 03/09 0530 AC 03/09 IV 0338 Lorazepam 1 MG Q1H PRN 03/09 0415 AC IV Metoclopramide HCl 10 MG Q4HR PRN 03/09 0415 AC IV Metoclopramide HCl 10 MG Q4HR PRN 03/09 0415 AC PO Morphine Sulfate 4 MG Q10M PRN 03/09 0415 AC IV Morphine Sulfate/ See Dose .SEE DOSE INSTRUCT.. 03/09 0415 AC 03/09 Sodium Chloride Insts (1) IV 0537 Morphine Sulfate 2 MG ONCE 03/09 0345 AC 03/09 IV 0330 Ondansetron HCl 4 MG Q6H PRN 03/09 0330 AC 03/09 IV 0458 Dose Instructions: (1)Morphine Sulfate/Sodium Chloride: EX[employer]IVE [employer] BOLUS = 0 DOSE = 0 LOCKOUT = 0 4 HR LIMIT = 0 CONTINUOUS = 2MG/HR Allergies Coded Allergies: Iodides (03/09/17) Iodinated Contrast Media (03/09/17) Physical Exam Vital Signs / I&Os Vital Signs Date Time Temp Pulse Resp B/P Pulse O2 O2 Flow FiO2 Ox Delivery Rate 03/09 033 7.0 Non-Rebreather Mask General Appearance No acute distress, unresponsive Neurological unresponsive LAB Results Laboratory Tests 03/09 03/09 0034 0030 Chemistry Plasma Sodium (136 - 145 mmol/L) 141 Plasma Potassium (3.5 - 5.1 mmol/L) 3.7 Plasma Chloride (98 - 107 mmol/L) 108 CO2 (Enzymatic) (21 - 32 mmol/L) 22 BUN (7 - 18 mg/dL) 22 Creatinine (0.6 - 1.3 mg/dL) 1.3 Est GFR ( Amer) (mL/min) >60 Est GFR (Non-Af Amer) (mL/min) 55.76 Glucose (70 - 110 mg/dL) 287 Plasma Calcium (8.5 - 10.1 mg/dL) 8.0 Plasma Magnesium (1.8 - 2.4 mg/dL) 2.0 Total Bilirubin (0.0 - 1.0 mg/dL) 0.5 AST (15 - 37 U/L) 16 ALT (12 - 78 U/L) 18 Alkaline Phosphatase (46 - 116 U/L) 61 Creatine Kinase (24 - 260 U/L) 29 Troponin (0.00 - 1.5 ng/mL) 0.05 Total Protein (6.4 - 8.2 g/dL) 5.8 Albumin (3.3 - 5.0 g/dL) 2.6 Coagulation INR (0.8 - 1.2) 1.0 Hematology WBC (4.5 - 11.5 K/uL) 18.2 RBC (4.50 - 5.90 M/uL) 2.84 Hgb (13.5 - 17.5 gm/dL) 9.0 Hct (41.0 - 53.0 %) 28.2 MCV (80 - 100 fL) 100 MCH (26 - 34 pg) 32 RDW (11.6 - 14.8 %) 23.6 Neut % (Auto) (50 - 75 %) 54.7 Lymph % (Auto) (25 - 40 %) 29.4 [place] % (Auto) (3 - 14 %) 9.9 Eos % (Auto) (0 - 4 %) 5.4 Baso % (Auto) (0 - 2 %) 0.6 Plt Count, EDTA (150 - 400 K/uL) 229 PUBS MCHC (31 - 37 g/dL) 32 Urines Urine Color Cancelled Urine Appearance Cancelled Urine pH Cancelled Ur Specific [place] Cancelled Urine Protein Cancelled Urine Ketones Cancelled Urine Blood Cancelled Urine Nitrite Cancelled Urine Bilirubin Cancelled Urine Urobilinogen Cancelled Ur Leukocyte Esterase Cancelled Urine RBC Cancelled Urine WBC Cancelled Ur Epithelial Cells Cancelled Urine Bacteria Cancelled Urine Glucose Cancelled Assessment and Plan Problem List 1. Ruptured abdominal aortic aneurysm (AAA) Plan -Patient presents with findings of ruptured abdominal aortic aneurysm. -Patient/family wish to pursue comfort measures only -Patient admitted for observation status comfort measures -Doubt patient will survive the remainder the day. -Patient's family aware that patient will not survive current condition 2. Need for comfort care Plan -Patient placed on comfort measures only -IV narcotic therapy -IV antianxiety agents as necessary Current status: Critical, grave Anticipated discharge date: Today-with suspected expiration Anticipated discharge placement: None Patient care time: Time spent in chart review, patient interview, physical exam, CPOE, and care documentation: 25 minutes Visit to patient today: Complexity of care: Moderate E&M Codes Rounding: Inpt-Moderate/[id number]
[2017-03-09 06:16] VITALS: BP 63/48
--- NOTE | 2017-03-09 06:48 | DIAGNOSTIC IMAGING REPORT ---
PROCEDURE: CT ABDOMEN/PELVIS W/O CONTRAST INDICATION: ABDOMINAL PAIN TECHNIQUE: Axial CT images were obtained through the abdomen and pelvis without IV contrast. Coronal and sagittal reformations were created. IV contrast was not used secondary to contrast allergy. COMPARISON: None. FINDINGS: A large infrarenal abdominal aortic aneurysm measuring 8.5 cm in AP diameter and moderate to large amount of periaortic retroperitoneal hemorrhage, particularly layering into the right pararenal space. The inferior vena cava is diminutive, surrounded by hemorrhage. There are multiple large cysts associated with each kidney. 16 mm calcified stone within the gallbladder. Mild calcification of the splenic artery and moderate calcification of the pelvic arteries. Minor bibasilar fibrotic changes in the right base punctate calcifications. Normal sized heart. Moderate to heavy coronary and systemic atherosclerosis. Normal size heart. No hiatal hernia. The unenhanced appearance of the liver, adrenal glands, pancreas and spleen is normal. The stomach, upper bowel loops, and mesentery appears normal. Moderate sigmoid diverticulosis. The unenhanced appearance of the prostate gland, seminal vesicles, urinary bladder, pelvic vessels, and pelvic bowel loops is normal. Demineralized, mildly degenerative osseous structures with findings in the thoracic spine of ankylosing spondylitis. Osseous spinal stenosis at L4-5 and left L5 hemilaminectomy change. IMPRESSION: 1. Ruptured abdominal aortic aneurysm with hemoretroperitoneum. 2. Cholelithiasis. 3. Moderate systemic and coronary atherosclerosis. 4. Preliminary report by Dr. Leelee Day of [facility] radiology. All CT scans at this facility use dose modulation, iterative reconstruction, and/or weight-based dosing when appropriate to reduce radiation dose to as low as reasonably achievable.
--- NOTE | 2017-03-19 00:31 | ED DISCHARGE INSTRUCTIONS ---
Patient: WILFREDO RAMIREZ General Instructions [facility] VisitID: [id number] [address] [place] [address] 86y, M Registration Date/Time: 03/09/2017 Symptomatic abdominal aortic aneurysm with rupture, hypotension and shock. (Electronically signed by Maggie Horan MD 03/19/2017 0:31)
--- NOTE | 2017-03-19 00:31 | ED MAR SUMMARY ---
..... Medication Administration Record [facility] [address] [place] [address] Patient: WILFREDO RAMIREZ Visit ID: [id number] 86y, M Weight: 85.7 kg Height/Length: 72 in BMI: 25.6 ALLERGIES: Iodine, Shellfish-derived Products Start 00:39 03/09/2017 Noe Kovacs R.N., Continued Upon Admission 02:30 03/09/2017 Trung Witt R.N. Medication Administered: IV NS (SALINE), Dose: IV Fluids over 1 hour(s), Rate: 1000 mL/hr, Dispensed: 1000 mL bag, Site: #1 left wrist. Medication Ordered: IV NS : initial bolus 1000 mL (1000 mL/hr), then 1000 mL/hr (NOW). Start 00:40 03/09/2017 Noe Kovacs R.N., Stop 02:30 03/09/2017 Trung Witt R.N. Medication Administered: IV NS (SALINE), Dose: IV Fluids over 1 hour(s), Rate: 1000 mL/hr, Dispensed: 1000 mL bag, Site: #2 right AC. Medication Ordered: IV NS : initial bolus 1000 mL (1000 mL/hr), then 1000 mL/hr (NOW). Given 00:54 03/09/2017 Noe Kovacs R.N. Medication Administered: ZOFRAN [IVP] (ONDANSETRON HCL), Dose: 8 mg IVP over 1 minute(s), Site: #1 left wrist. Medication Ordered: Zofran IV 8 mg (NOW). Given 01:46 03/09/2017 Trung Witt R.N. Medication Administered: MORPHINE [IVP], Dose: 2 mg IVP over 2 minute(s), Site: #2 right AC. Medication Ordered: Morphine IV 2 mg (HIGH ALERT MEDICATION). Given 01:48 03/09/2017 Trung Witt R.N. Medication Administered: PHENERGAN [IVP] (PROMETHAZINE HCL), Dose: 12.5 mg IVP over 2 minute(s), Site: #3 left AC. Medication Ordered: Phenergan IV 12.5 mg (HIGH ALERT MEDICATION, NOW). Given 02:06 03/09/2017 Trung Witt R.N. Medication Administered: MORPHINE [IVP], Dose: 2 mg IVP over 2 minute(s), Site: #1 left wrist. Medication Ordered: Morphine IV 2 mg (HIGH ALERT MEDICATION, NOW). Given 02:10 03/09/2017 Trung Witt R.N. Medication Administered: MORPHINE [IVP], Dose: 2 mg IVP over 2 minute(s), Site: #3 left AC. Medication Ordered: Morphine IV 2 mg (HIGH ALERT MEDICATION, NOW).
--- NOTE | 2017-03-19 00:31 | ED MED RECONCILIATION SUMMARY ---
Patient: WILFREDO RAMIREZ Medication Reconciliation Report [facility] VisitID: [id number] [address] [place] [address] 86y, M Registration Date/Time: 03/09/2017 Weight: 85.7 kg Height/Length: 72 in. BMI: 25.6 ALLERGIES: Iodine, Shellfish-derived Products The patient's Home Medications are listed below: Unable to obtain. The source(s) of the original Home Medication information: Not obtained. The following Medications were given to the patient in the Emergency Department: IV NS IV Fluids bolus 0, then 1000 mL/hr, administered: 03/09/2017 12:39:00 AM Zofran [IVP] IVP 8 mg, administered: 03/09/2017 12:54:00 AM IV NS IV Fluids bolus 0, then 1000 mL/hr, administered: 03/09/2017 12:40:00 AM Morphine [IVP] IVP 2 mg, administered: 03/09/2017 1:46:00 AM PHENERGAN [IVP] IVP 12.5 mg, administered: 03/09/2017 1:48:00 AM Morphine [IVP] IVP 2 mg, administered: 03/09/2017 2:06:00 AM Morphine [IVP] IVP 2 mg, administered: 03/09/2017 2:10:00 AM The following Medications were prescribed to the patient: None.
--- NOTE | 2017-03-19 00:31 | ED MAR SUMMARY ---
..... Medication Administration Record [facility] [address] [place] [address] Patient: WILFREDO RAMIREZ Visit ID: [id number] 86y, M Weight: 85.7 kg Height/Length: 72 in BMI: 25.6 ALLERGIES: Iodine, Shellfish-derived Products Start 00:39 03/09/2017 Noe Kovacs R.N., Continued Upon Admission 02:30 03/09/2017 Trung Witt R.N. Medication Administered: IV NS (SALINE), Dose: IV Fluids over 1 hour(s), Rate: 1000 mL/hr, Dispensed: 1000 mL bag, Site: #1 left wrist. Medication Ordered: IV NS : initial bolus 1000 mL (1000 mL/hr), then 1000 mL/hr (NOW). Start 00:40 03/09/2017 Noe Kovacs R.N., Stop 02:30 03/09/2017 Trung Witt R.N. Medication Administered: IV NS (SALINE), Dose: IV Fluids over 1 hour(s), Rate: 1000 mL/hr, Dispensed: 1000 mL bag, Site: #2 right AC. Medication Ordered: IV NS : initial bolus 1000 mL (1000 mL/hr), then 1000 mL/hr (NOW). Given 00:54 03/09/2017 Noe Kovacs R.N. Medication Administered: ZOFRAN [IVP] (ONDANSETRON HCL), Dose: 8 mg IVP over 1 minute(s), Site: #1 left wrist. Medication Ordered: Zofran IV 8 mg (NOW). Given 01:46 03/09/2017 Trung Witt R.N. Medication Administered: MORPHINE [IVP], Dose: 2 mg IVP over 2 minute(s), Site: #2 right AC. Medication Ordered: Morphine IV 2 mg (HIGH ALERT MEDICATION). Given 01:48 03/09/2017 Trung Witt R.N. Medication Administered: PHENERGAN [IVP] (PROMETHAZINE HCL), Dose: 12.5 mg IVP over 2 minute(s), Site: #3 left AC. Medication Ordered: Phenergan IV 12.5 mg (HIGH ALERT MEDICATION, NOW). Given 02:06 03/09/2017 Trung Witt R.N. Medication Administered: MORPHINE [IVP], Dose: 2 mg IVP over 2 minute(s), Site: #1 left wrist. Medication Ordered: Morphine IV 2 mg (HIGH ALERT MEDICATION, NOW). Given 02:10 03/09/2017 Trung Witt R.N. Medication Administered: MORPHINE [IVP], Dose: 2 mg IVP over 2 minute(s), Site: #3 left AC. Medication Ordered: Morphine IV 2 mg (HIGH ALERT MEDICATION, NOW).
--- NOTE | 2017-03-19 00:31 | ED MED RECONCILIATION SUMMARY ---
Patient: WILFREDO RAMIREZ Medication Reconciliation Report [facility] VisitID: [id number] [address] [place] [address] 86y, M Registration Date/Time: 03/09/2017 Weight: 85.7 kg Height/Length: 72 in. BMI: 25.6 ALLERGIES: Iodine, Shellfish-derived Products The patient's Home Medications are listed below: Unable to obtain. The source(s) of the original Home Medication information: Not obtained. The following Medications were given to the patient in the Emergency Department: IV NS IV Fluids bolus 0, then 1000 mL/hr, administered: 03/09/2017 12:39:00 AM Zofran [IVP] IVP 8 mg, administered: 03/09/2017 12:54:00 AM IV NS IV Fluids bolus 0, then 1000 mL/hr, administered: 03/09/2017 12:40:00 AM Morphine [IVP] IVP 2 mg, administered: 03/09/2017 1:46:00 AM PHENERGAN [IVP] IVP 12.5 mg, administered: 03/09/2017 1:48:00 AM Morphine [IVP] IVP 2 mg, administered: 03/09/2017 2:06:00 AM Morphine [IVP] IVP 2 mg, administered: 03/09/2017 2:10:00 AM The following Medications were prescribed to the patient: None.
--- NOTE | 2017-03-19 00:31 | ED DISCHARGE INSTRUCTIONS ---
Patient: WILFREDO RAMIREZ General Instructions [facility] VisitID: [id number] [address] [place] [address] 86y, M Registration Date/Time: 03/09/2017 Symptomatic abdominal aortic aneurysm with rupture, hypotension and shock. (Electronically signed by Maggie Horan MD 03/19/2017 0:31)
--- NOTE | 2017-03-27 21:37 | Expiration Summary ---
Expiration Summary Report Admit Date 03/09/17 03/10/17 Admitting Diagnoses ruptured aortic aneurysm Final Diagnoses circulatory collapse secondary to ruptured aortic aneurysm Cause of ruptured aortic aneurysm Brief History please refer to admission H&P Hospital Course Patient was admitted to the floor with pain control and monitoring. Patients family was brought to the bedside. At this time the patient was minimally responsive and did not do much in terms of responding/complaining of pain. Patient continued to deteriorate throughout the next 24 hours and eventually after 24 hours. Disposition
== END 2017-03-10 00:30 | disposition expired | DRG 300 ==
LOC: ED SRH 00:24 → TRANS SRH 01:48 → ACUTE2 SRH 01:48
PROVIDERS: ADMIT Internal Medicine
PROC: 05H533Z Insertion of Infusion Device into Right Subclavian Vein, Percutaneous Approach (ICD-10-PCS; principal; 2017-03-09)
PROC: 30253N1 (ICD-10-PCS; principal; 2017-03-09)
DX: I71.3 Abdominal aortic aneurysm, ruptured (principal); R57.9 Shock, unspecified; Z51.5 Encounter for palliative care; Z82.49 Family history of ischemic heart disease and other diseases of the circulatory system